=== PATIENT | male | born 1965 | race Caucasian/White ===

== ENCOUNTER 2018-09-25 14:36 | Emergency (ER) | payer SELFPAY ==
[~2018-09-25] VITALS: Ht 165.1 cm; Wt 90.0 kg
[~2018-09-25 14:36] MED LIST: ASPI-817 PO; CYCL10TA7 PO; HYDR12.58 PO; IBUP-1542 PO; LISI-471 PO
[2018-09-25 14:38] VITALS: Ht 165.1 cm; Wt 90.0 kg
[2018-09-25] MEDS ORDERED: ACETAMINOPHEN 325 MG TAB PO ONE (16:30)
[2018-09-25] MEDS ORDERED: IBUP800T48 PO (19:56)
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
[2018-09-25 20:10] VITALS: BP 144/84; PULSE 74; RESP 18
== END 2018-09-25 20:11 | disposition home or self-care (01) ==
LOC: FTE 14:36
DX: S16.1XXA Strain of muscle, fascia and tendon at neck level, initial encounter (principal); I10 Essential (primary) hypertension; S00.93XA Contusion of unspecified part of head, initial encounter; R51 Headache; V89.2XXA Person injured in unspecified motor-vehicle accident, traffic, initial encounter; Z79.82 Long term (current) use of aspirin
CPT/HCPCS: 70450; 72040; 72100; 72125; 73140